=== PATIENT | male | born 1980 | race Caucasian/White ===

== ENCOUNTER 2017-06-03 17:50 | Emergency (ER) | payer OTHER ==
[~2017-06-03] VITALS: Ht 188 cm; Wt 144.7 kg
[2017-06-03] MEDS ORDERED: KLON0.5T PO (18:07)
[2017-06-03] MEDS ORDERED: [UNRECOGNIZED DRUG - REMARK] PB (18:07)
[2017-06-03] MEDS ORDERED: PAXI40TA10 PO (18:07)
[2017-06-03] MEDS ORDERED: PRAV40TA2 PO (18:07)
[2017-06-03] MEDS: LIDOCAINE 2% MDV 20 ML VIAL SC ONE (18:30)
[2017-06-03] MEDS: BUPIVACAINE HCL 0.5% 10 ML VIAL SC ONE (18:30)
[2017-06-03] MEDS: ADACEL/BOOSTRIX VACCINE (DIPHTH/PERTUSS/ACELL/TETANUS)0.5ML SYR (90715) IM ONE (18:33)
[2017-06-03] MEDS ORDERED: KETO10TAB PO (19:17)
[2017-06-03 19:32] VITALS: BP 146/99
[2017-06-03] MEDS: cefTRIAXone SOD 250 MG VIAL (J0696) IM ONE (19:33)
== END 2017-06-03 19:49 | disposition home or self-care (01) ==
LOC: M ED 17:50
DX: S61.211A Laceration without foreign body of left index finger without damage to nail, initial encounter (principal); W26.0XXA Contact with knife, initial encounter; Y92.9 Unspecified place or not applicable; Y93.89 Activity, other specified; Y99.8 Other external cause status; I10 Essential (primary) hypertension; E78.00 Pure hypercholesterolemia, unspecified; F41.9 Anxiety disorder, unspecified; Z87.81 Personal history of (healed) traumatic fracture; Z79.899 Other long term (current) drug therapy
CPT/HCPCS: 12001; 90471; 90715; 96372; 99283; J0696